=== PATIENT | female | born 1975 | race Caucasian/White ===

== ENCOUNTER 2016-09-04 18:05 | Inpatient (IN) | payer BC ==
[~2016-09-04] VITALS: Ht 154.9 cm; Wt 70.8 kg
[2016-09-04 18:05] VITALS: BP_SYST 128
[2016-09-04] MEDS ORDERED: NACL 0.9% 1,000 ML IV ONE ×2 (18:19→18:45)
[2016-09-04] MEDS ORDERED: PROMETHAZINE HCL 25 MG/ML AMP IVP ONE (18:30)
[2016-09-04] MEDS ORDERED: cefTRIAXone 1 GM in D5W 50 ML IV ONE (18:45)
[2016-09-04 18:47] LABS: BILIRUBIN,URINE NEGATIVE (NEGATIVE); CLARITY/URINE SL HAZY (CLEAR); COLOR,URINE YELLOW (YELLOW); GLUCOSE,URINE NEGATIVE (NEGATIVE); KETONES,URINE 1+ (NEGATIVE); LEUKOCYTE ESTERASE ,URINE 1+ (NEGATIVE); NITRITE, URINE POSITIVE (NEGATIVE); PROTEIN URINE 1+ (NEGATIVE); UROBILINOGEN,URINE 0.2 (0.2-1.0)
[2016-09-04] MEDS ORDERED: cefTRIAXone 1 GM VIAL ONE (18:50)
[2016-09-04 18:56] LABS: BLOOD, URINE TRACE (NEGATIVE)
[2016-09-04 18:57] LABS: BACTERIA,URINE MODERATE /HPF (None Seen); MUCUS,URINE None Seen /LPF (None Seen); RBC,URINE NONE SEEN /HPF (0-3)
[2016-09-04 19:10] LABS: CALCIUM 8.8 mg/dL (8.4-11.0); CREATININE 1.05 mg/dL (0.55-1.30); POTASSIUM 3.3 mmol/L (3.5-5.1)
[2016-09-04 19:15] LABS: ALBUMIN 3.7 g/dL (3.4-4.8); TOTAL BILIRUBIN 0.5 mg/dL (0.0-1.0); TOTAL PROTEIN, SERUM 7.8 g/dL (6.4-8.3)
[2016-09-04 19:26] LABS: PROTHROMBIN TIME 10.6 SECS (9.5-12.5)
[2016-09-04 19:39] LABS: MEAN CORPUSCULAR HGB CONC 30 % (32-36); PLATELET COUNT (AUTO) 394 K/uL (130-430)
[2016-09-04 19:41] LABS: MEAN CORPUSCULAR HEMOGLOBIN 17 pg (27-31); MEAN CORPUSCULAR VOLUME 56 fL (79.0-98.0); RED BLOOD CELL COUNT(AUTO) 3.38 MIL/uL (4.2-6.2); RED CELL DISTRIBUTION WIDTH 19.5 % (9.0-15.0); WHITE BLOOD COUNT (AUTO) 17.3 K/uL (4.8-10.8)
[2016-09-04 19:44] LABS: HEMATOCRIT 18.9 % (36-48); HEMOGLOBIN 5.6 g/dL (12.0-16.0)
[2016-09-04 19:50] LABS: BAND % (MANUAL) 7 % (0-6); BASOPHILS % (MANUAL) 0 % (0-2); EOSINOPHILS % (MANUAL) 0 % (0-7); LYMPHOCYTES % (MANUAL) 3 % (20-46); MONOCYTES % (MANUAL) 4 % (0-11)
[2016-09-04] MEDS ORDERED: IBUPROFEN 800 MG TABLET PO ONE (20:00)
[2016-09-04 20:41] LABS: IRON (SERUM) 15 mcg/dL (37-145); TOTAL IRON BIND. CAPACITY 364 ug/dL (250-450)
[2016-09-04] MEDS ORDERED: METF-510 PO (20:42)
[2016-09-04 21:09] VITALS: BP_SYST 117
[2016-09-04] MEDS ORDERED: IRON DEXTRAN COMPLEX 25 MG in NS 50 ML IV ONE (21:45)
[2016-09-04] MEDS ORDERED: ONDANSETRON HCL 4 MG/2 ML VIAL IVP PRN (22:00)
[2016-09-04] MEDS ORDERED: traMADol HCL HCL 50 MG TABLET (ULTRAM) PO PRN (22:00)
[2016-09-04 22:16] LABS: LYMPHOCYTES # (AUTO) 1.7 K/uL (1.0-5.5); LYMPHOCYTES % (AUTO) 8.5 % (20.5-51.5); MEAN CORPUSCULAR HEMOGLOBIN 17 pg (27-31); MEAN CORPUSCULAR HGB CONC 30 % (32-36); MEAN CORPUSCULAR VOLUME 56 fL (79.0-98.0); MONOCYTES # (AUTO) 1.5 K/uL (0.0-1.0); MONOCYTES % (AUTO) 7.4 % (1.7-9.3); PLATELET COUNT (AUTO) 403 K/uL (130-430); RED BLOOD CELL COUNT(AUTO) 3.44 MIL/uL (4.2-6.2); RED CELL DISTRIBUTION WIDTH 20.3 % (9.0-15.0); WHITE BLOOD COUNT (AUTO) 20.4 K/uL (4.8-10.8)
[2016-09-04] MEDS: CIPROFLOXACIN LACT 400 MG/D5W 200 ML IV SCH (22:27)
[2016-09-04] MEDS ORDERED: CIPROFLOXACIN LACT 400 MG/D5W 200 ML IV ONE (22:27)
[2016-09-04 22:31] LABS: HEMATOCRIT 19.4 % (36-48); HEMOGLOBIN 5.7 g/dL (12.0-16.0)
[2016-09-04 22:32] LABS: NEUTROPHILS # (AUTO) 17.2 K/uL (1.8-7.7); NEUTROPHILS % (AUTO) 84.1 % (40.0-70.0)
[2016-09-04] MEDS ORDERED: POTASSIUM CHLORIDE 20 MEQ TAB.PRT.SR PO ONE (23:15)
[2016-09-04] MEDS ORDERED: DIPHENHYDRAMINE INJ 50 MG/ML VIAL IVP PRN (23:30)
[2016-09-04] MEDS ORDERED: ACETAMINOPHEN 325 MG TABLET PO PRN (23:30)
[2016-09-04 23:52] VITALS: BP_SYST 132
[2016-09-05 04:39] VITALS: BP_SYST 118
[2016-09-05] MEDS ORDERED: IRON DEXTRAN COMPLEX 25 MG in NS 50 ML IV ONE (07:45)
[2016-09-05 08:00] VITALS: BP_SYST 116
[2016-09-05 08:09] LABS: HEMATOCRIT 26.4 % (36-48); HEMOGLOBIN 8.3 g/dL (12.0-16.0); MEAN CORPUSCULAR HEMOGLOBIN 21 pg (27-31); MEAN CORPUSCULAR HGB CONC 31 % (32-36); MEAN CORPUSCULAR VOLUME 66 fL (79.0-98.0); PLATELET COUNT (AUTO) 292 K/uL (130-430); RED BLOOD CELL COUNT(AUTO) 3.98 MIL/uL (4.2-6.2); RED CELL DISTRIBUTION WIDTH 28.8 % (9.0-15.0)
[2016-09-05 08:19] LABS: ALBUMIN 3.1 g/dL (3.4-4.8); CALCIUM 8.3 mg/dL (8.4-11.0); CREATININE 0.66 mg/dL (0.55-1.30); POTASSIUM 3.8 mmol/L (3.5-5.1); TOTAL BILIRUBIN 0.7 mg/dL (0.0-1.0)
[2016-09-05] MEDS: ACETAMINOPHEN 325 MG TABLET PO PRN ×2 (08:19→18:13)
[2016-09-05] MEDS ORDERED: IRON DEXTRAN COMPLEX 500 MG in NS 500 ML IV ONE (09:00)
[2016-09-05] MEDS: CIPROFLOXACIN LACT 400 MG/D5W 200 ML IV SCH ×2 (10:23→18:59)
[2016-09-05 11:00] LABS: RETICULOCYTE COUNT 2.3 % (0.5-1.5)
[2016-09-05 11:08] LABS: ATYPICAL LYMPHOCYTES % 0 % (0-0); BAND % (MANUAL) 2 % (0-6); BASOPHILS % (MANUAL) 0 % (0-2); EOSINOPHILS % (MANUAL) 0 % (0-7); LYMPHOCYTES % (MANUAL) 4 % (20-46); MONOCYTES % (MANUAL) 8 % (0-11)
[2016-09-05 12:32] VITALS: BP_SYST 118
[2016-09-05 15:19] LABS: BASOPHILS % (AUTO) 0.2 % (0.0-2.0)
[2016-09-05 15:21] LABS: EOSINOPHILS % (AUTO) 0.3 % (0.0-4.0); HEMATOCRIT 26.1 % (36-48); HEMOGLOBIN 8.3 g/dL (12.0-16.0); LYMPHOCYTES # (AUTO) 1.6 K/uL (1.0-5.5); LYMPHOCYTES % (AUTO) 10.8 % (20.5-51.5); MEAN CORPUSCULAR HEMOGLOBIN 21 pg (27-31); MEAN CORPUSCULAR HGB CONC 32 % (32-36); MEAN CORPUSCULAR VOLUME 66 fL (79.0-98.0); MONOCYTES # (AUTO) 1.3 K/uL (0.0-1.0); MONOCYTES % (AUTO) 8.8 % (1.7-9.3); NEUTROPHILS # (AUTO) 11.9 K/uL (1.8-7.7); NEUTROPHILS % (AUTO) 79.9 % (40.0-70.0); PLATELET COUNT (AUTO) 303 K/uL (130-430); RED BLOOD CELL COUNT(AUTO) 3.93 MIL/uL (4.2-6.2); RED CELL DISTRIBUTION WIDTH 28.7 % (9.0-15.0); WHITE BLOOD COUNT (AUTO) 14.8 K/uL (4.8-10.8)
[2016-09-05 16:53] VITALS: BP_SYST 122
[2016-09-05 17:07] VITALS: BP_SYST 117
[2016-09-05 19:59] VITALS: BP_SYST 110
== END 2016-09-05 21:15 | disposition home or self-care (01) | DRG 872 ==
LOC: SED 18:05 → STU 20:51
PROVIDERS: ADMIT Internal Medicine; ATTEND Internal Medicine
PROC: 30233N1 Transfusion of Nonautologous Red Blood Cells into Peripheral Vein, Percutaneous Approach (ICD-10-PCS; principal; 2016-09-05)
DX: A41.9 Sepsis, unspecified organism (principal); N12 Tubulo-interstitial nephritis, not specified as acute or chronic; E11.9 Type 2 diabetes mellitus without complications; D50.9 Iron deficiency anemia, unspecified; E66.9 Obesity, unspecified; Z68.29 Body mass index [BMI] 29.0-29.9, adult; Z98.51 Tubal ligation status
CPT/HCPCS: 36415; 71010; 76700-TC; 76830-TC; 76857; 80053; 81000-TC; 82150-TC; 83540-TC; 83550-TC; 83605; 83615-TC; 83690-TC; 84703; 85007; 85025; 85027; 85044-TC; 85610-TC; 85730-TC; 86886; 86900; 86901; 86920; 87040-TC; 87086; 87186-TC; 96361; 96365; 96375; 99285; J0696; J0744; J1750; J2550; J7030; J7040; J7060; P9021

== ENCOUNTER 2018-03-06 11:14 | Emergency (ER) | payer BC ==
[~2018-03-06] VITALS: Ht 154.9 cm; Wt 68.0 kg
[~2018-03-06 11:14] MED LIST: METF-510 PO
[2018-03-06 11:22] VITALS: BP_SYST 148
[2018-03-06] MEDS ORDERED: ONDANSETRON 4 MG ODT TAB PO ONE (12:00)
[2018-03-06] MEDS ORDERED: MECLIZINE HCL 25 MG TABLET (ANITVERT) PO ONE (12:00)
[2018-03-06 13:04] VITALS: BP_SYST 139
== END 2018-03-06 13:03 | disposition home or self-care (01) ==
LOC: SED 11:14
DX: H81.399 Other peripheral vertigo, unspecified ear (principal); E11.9 Type 2 diabetes mellitus without complications; R03.0 Elevated blood-pressure reading, without diagnosis of hypertension; Z86.2 Personal history of diseases of the blood and blood-forming organs and certain disorders involving the immune mechanism
CPT/HCPCS: 81025; 99283; J8597; Q0162